=== PATIENT | female | born 1955 | race Asian ===

== ENCOUNTER 2023-12-30 00:47 | Inpatient (IN) | payer OTHER ==
[2023-12-30] MEDS ORDERED: morphine SULFATE 4 MG/ML VIAL ONE (01:56)
[2023-12-30 01:57] LABS: BASO % 0.5 % (0-2.0); EOS % 1.8 % (0-4.5); HEMOGLOBIN 13.4 GM/dL (10.7-15.3); LYMPH % 13.1 % (8-40); MCH 30.1 pg (25.7-33.7); MCHC 33.4 g/dl (32.0-36.0); MEAN CELL VOLUME 90.1 fl (80-96); MEAN PLT VOLUME 7.1 fl (7.5-11.1); MONO % 5.7 % (3.8-10.2); NEUT % 78.9 % (42.8-82.8); PLATELET COUNT 254 10^3/uL (134-434); RBC 4.44 M/mm3 (3.60-5.2); WHITE BLOOD COUNT 13.2 K/mm3 (4.0-10.0)
[2023-12-30 02:03] LABS: INR 0.99 (0.83-1.09); PROTHROMBIN TIME (PATIENT) 11.2 SEC (9.7-13.0)
[2023-12-30] MEDS: morphine CARPU-JECT 4 MG/1 ML DISP.SYRIN IVPUSH ONE (02:15)
[2023-12-30 02:17] LABS: CHLORIDE 103 mmol/L (98-107); POTASSIUM 3.7 mmol/L (3.5-5.1); SODIUM 140 mmol/L (136-145)
[2023-12-30 02:19] LABS: ALBUMIN 4.4 g/dl (3.4-5.0); CALCIUM 9.7 mg/dL (8.5-10.1)
[2023-12-30 02:20] LABS: ANION GAP 8 mmol/L (4-13); BLOOD UREA NITROGEN 15.5 mg/dL (7-18); CO2 28 mmol/L (21-32); GLUCOSE,RANDOM 127 mg/dL (74-106)
[2023-12-30 02:22] LABS: SGPT/ALT 28 U/L (13-61)
[2023-12-30 02:23] LABS: CREATININE 0.6 mg/dL (0.55-1.3); SGOT/AST 22 U/L (15-37)
[2023-12-30 02:24] LABS: BILIRUBIN,TOTAL 0.4 mg/dL (0.2-1); TOT PROT 7.1 g/dl (6.4-8.2)
[2023-12-30 02:25] LABS: ALK PHOS 61 U/L (45-117)
[2023-12-30 02:49] LABS: ERYTHROCYTE SEDIMENTATION RATE 5 mm/hr (0-30)
[2023-12-30 04:27] LABS: BF WBC & OTHER NUCLEATED CELLS 32704 /mm3
[2023-12-30 05:12] LABS: BODY FLUID MONOCYTE 8 %
[2023-12-30] MEDS ORDERED: CEFEPIME 1 GM/100 ML BAG IVPB ONE (06:16)
[2023-12-30] MEDS ORDERED: KETOROLAC TROMETHAMINE 15 MG/ML VIAL ONE (06:27)
[2023-12-30] MEDS: KETOROLAC TROMETHAMINE 15 MG/ML VIAL IVPUSH ONE (06:31)
[2023-12-30] MEDS: CEFEPIME HCL 2 GM VIAL (RESTRICTED TO ID) IVPB ONE (06:31)
[2023-12-30] MEDS ORDERED: VANCOMYCIN/WATER 1250 MG 1,250 MG/250 ML BAG IVPB ONE (08:08)
[2023-12-30] MEDS: VANCOMYCIN 1,000 MG in DEXTROSE 5%-WATER - 250 ML IVPB ONE (08:27)
[2023-12-30 10:07] LABS: HEMATOCRIT 35.9 % (32.4-45.2); HEMOGLOBIN 12.1 GM/dL (10.7-15.3); MCH 30.5 pg (25.7-33.7); MCHC 33.7 g/dl (32.0-36.0); MEAN CELL VOLUME 90.4 fl (80-96); PLATELET COUNT 226 10^3/uL (134-434); RBC 3.97 M/mm3 (3.60-5.2); RDW 14.2 % (11.6-15.6); WHITE BLOOD COUNT 9.4 K/mm3 (4.0-10.0)
[2023-12-30] MEDS ORDERED: NAPROXEN 500 MG TABLET ONE (10:45)
[2023-12-30] MEDS ORDERED: ENOXAPARIN NA (PORCINE) 40 MG/0.4 ML DISP.SYRIN SQ ONE (10:46)
[2023-12-30 11:15] LABS: CRYSTALS,SYNOVIAL FLUID NEGATIVE
[2023-12-30] MEDS: ENOXAPARIN NA (PORCINE) 40 MG/0.4 ML DISP.SYRIN SQ SCH (11:17)
[2023-12-30] MEDS: NAPROXEN 500 MG TABLET PO SCH ×2 (11:17→23:03)
[2023-12-30] MEDS ORDERED: ASPIRIN COATED 81 MG TABLET.EC ONE (13:06)
[2023-12-30] MEDS ORDERED: LOSARTAN POTASSIUM 50 MG TABLET ONE (13:07)
[2023-12-30] MEDS ORDERED: GABAPENTIN 300 MG CAPSULE ONE (13:07)
[2023-12-30] MEDS: LOSARTAN POTASSIUM 50 MG TABLET PO SCH (13:22)
[2023-12-30] MEDS: ASPIRIN COATED 81 MG TABLET.EC PO SCH (13:22)
[2023-12-30] MEDS: INSULIN ASPART SLIDING SCALE (NOVOLOG) 1 VIAL SQ SCH (13:22)
[2023-12-30] MEDS: GABAPENTIN 300 MG CAPSULE PO SCH (13:23)
[2023-12-30] MEDS ORDERED: CEFTRIAXONE 2 GM/100 ML BAG IVPB ONE (14:46)
[2023-12-30] MEDS: CEFTRIAXONE 2 GM in DEXTROSE 5%-WATER 100 ML IVPB SCH (14:52)
[2023-12-30] MEDS: CEFTRIAXONE 2 GM-D5W BAG 2 GM/50 ML BAG IVPB SCH (15:02)
[2023-12-30] MEDS ORDERED: INSULIN ASPART SLIDING SCALE (NOVOLOG) 1 VIAL SQ ONE (18:15)
[2023-12-30] MEDS: ROSUVASTATIN CA 20 MG TABLET PO SCH (22:38)
[2023-12-30] MEDS: NAPROXEN 250 MG TABLET PO SCH (22:58)
[2023-12-31 00:04] VITALS: BMI 23.4
[2023-12-31 04:23] VITALS: RESP 18
[2023-12-31] MEDS: INSULIN (LEVEMIR) 100 UNITS/ML UNITS SQ SCH (06:29)
[2023-12-31 09:15] LABS: POTASSIUM 3.5 mmol/L (3.5-5.1)
[2023-12-31 09:20] LABS: BLOOD UREA NITROGEN 14.3 mg/dL (7-18); CALCIUM 8.8 mg/dL (8.5-10.1)
[2023-12-31 09:24] LABS: CREATININE 0.5 mg/dL (0.55-1.3)
[2023-12-31] MEDS: MELATONIN 5 MG TABLETS PO ONE (21:51)
[2024-01-01 09:36] VITALS: TEMP 98.4
[2024-01-01 14:59] VITALS: BP 125/87; PULSE 76
== END 2024-01-01 18:23 | disposition home or self-care (01) | DRG 554 ==
LOC: JER 00:47 → JERBED 06:41 → OBSVTOIN 11:51 → J6S 21:30
PROVIDERS: ADMIT Internal Medicine; ATTEND Internal Medicine
PROC: 0S9C3ZZ Drainage of Right Knee Joint, Percutaneous Approach (ICD-10-PCS; principal; 2023-12-30)
DX: M17.11 Unilateral primary osteoarthritis, right knee (principal); I10 Essential (primary) hypertension; E11.9 Type 2 diabetes mellitus without complications; E78.5 Hyperlipidemia, unspecified; M17.12 Unilateral primary osteoarthritis, left knee; S83.411A Sprain of medial collateral ligament of right knee, initial encounter; X58.XXXA Exposure to other specified factors, initial encounter; Y93.9 Activity, unspecified; Y92.9 Unspecified place or not applicable; Y99.9 Unspecified external cause status
CPT/HCPCS: 36415; 73562-TC-RT-FY; 73721-RT-TC; 76882-TC-RT; 80048; 80053; 82945; 82962; 84550; 84560; 85025; 85027; 85610; 85651; 86140; 86850; 86900; 86901; 87070; 87075; 87205; 89060; 97116-GP; 97162-GP; 99285-25; G0378